=== PATIENT | female | born 1975 | race Caucasian/White ===

== ENCOUNTER 2016-12-04 09:59 | Day surgery (SDC) | payer BC ==
[~2016-12-04] VITALS: Ht 165.1 cm; Wt 90.7 kg
[2016-12-04 10:35] LABS: INR 0.9 (0.8-1.2); PROTHROMBIN TIME 10.3 SECS (9.5-12.5)
[2016-12-04] MEDS ORDERED: CEFAZOLIN 1 GM IVPB PREMIX 50 ML IV ONE (11:00)
[2016-12-04] MEDS ORDERED: PROPOFOL 200MG/ 20ML VIAL (DIPRIVAN) IV ONE (12:15)
[2016-12-04] MEDS ORDERED: fentaNYL CITRATE 250 MCG/5 ML AMP IV ONE (12:15)
[2016-12-04] MEDS ORDERED: ROCURONIUM BROMIDE 10 MG/ML (ZEMURON) IV ONE (12:15)
[2016-12-04] MEDS ORDERED: SEVOFLURANE 15 MIN GAS INH ONE (12:15)
[2016-12-04] MEDS ORDERED: ONDANSETRON HCL 4 MG/2 ML VIAL IVP ONE (12:15)
[2016-12-04] MEDS ORDERED: MIDAZOLAM HCL 5 MG/5 ML VIAL IVP ONE (12:15)
[2016-12-04] MEDS ORDERED: KETOROLAC TROMETHAMINE 30 MG VIAL IVP ONE (12:15)
[2016-12-04] MEDS ORDERED: LR 1,000 ML IV.SOLN IV ONE (12:15)
[2016-12-04] MEDS ORDERED: WATER FOR IRRIGATION,STERILE 1,000 ML IRRIG.SOLN IR ONE (12:15)
[2016-12-04] MEDS ORDERED: LR 1,000 ML IV SCH (12:51)
[2016-12-04] MEDS ORDERED: METOCLOPRAMIDE HCL 10 MG/2 ML VIAL IVP PRN (13:00)
[2016-12-04] MEDS ORDERED: MORPHINE 2 MG/ML INJ. SYRINGE IVP PRN ×3 (13:00)
[2016-12-04] MEDS ORDERED: DIPHENHYDRAMINE INJ 50 MG/ML VIAL ONE (13:40)
[2016-12-04] MEDS ORDERED: DIPHENHYDRAMINE INJ 50 MG/ML VIAL IVP ONE (13:45)
[2016-12-04] MEDS ORDERED: DIPHENHYDRAMINE INJ 50 MG/ML VIAL IM ONE (13:45)
[2016-12-04 13:55] VITALS: BP_SYST 125
== END 2016-12-04 14:55 | disposition home or self-care (01) ==
LOC: SDS 09:59
PROVIDERS: ATTEND Specialist
DX: N92.0 Excessive and frequent menstruation with regular cycle (principal); D64.9 Anemia, unspecified; I21.3 ST elevation (STEMI) myocardial infarction of unspecified site; E10.9 Type 1 diabetes mellitus without complications; I10 Essential (primary) hypertension; E78.00 Pure hypercholesterolemia, unspecified; E66.01 Morbid (severe) obesity due to excess calories; I20.9 Angina pectoris, unspecified
CPT/HCPCS: 36415; 58563; 85610; 88305; J0690; J1200; J1885; J2250; J2270; J2405; J2704; J3010; J7120; J2765